=== PATIENT | male | born 1955 | race Caucasian/White ===

== ENCOUNTER 2017-04-29 13:45 | Emergency (ER) | payer MEDICARE ==
[2017-04-29] MEDS ORDERED: Ondansetron HCl/PF 4 MG/2 ML Vial ONE (13:52)
[2017-04-29 14:53] LABS: Hematocrit 35.9 % (42.0-52.0); Mean Platelet Volume 7.3 fL (7.4-10.4); Red Blood Cell (RBC) Count 3.53 mill/uL (4.70-6.10); White Blood Cell (WBC) Count 26.2 thou/uL (4.8-10.8)
[2017-04-29] MEDS ORDERED: Metoclopramide HCl 10 MG/2 ML VIAL ONE (14:54)
--- NOTE | 2017-04-29 14:56 | RAD ---
RADIOGRAPH CHEST 1 VIEW: Date: 04-29-17 Time: 1:32 p.m. HISTORY: 61-year-old male with chest pain. Follow up abnormal chest radiograph. COMPARISON: 04-23-17 FINDINGS: The patchy right upper lobe infiltrate and associated right upper lobe small pulmonary mass, has not changed. The rest of the lungs remain clear. Cardiomediastinal silhouette is normal. Lateral costop hrenic angles are sharp. There is no evidence of pneumothorax or pneumoperitoneum. IMPRESSION: 1. No interval change since 04-23-17. 2. Right upper lobe infiltrate and mass. CALLI POS: SUSHIL
[2017-04-29 15:11] LABS: ALT (SGPT) 495 U/L (8-55); AST (SGOT) 612 U/L (5-34); Alkaline Phosphatase 264 U/L (40-150); Anion Gap 30 mmol/L (10-20); BUN (Urea Nitrogen) 58 mg/dL (8.4-25.7); Bilirubin, Total 3.2 mg/dL (0.2-1.2); Calc. Creatinine Clearance 0 mL/min (70-130); Calcium 8.3 mg/dL (7.8-10.44); Carbon Dioxide 10 mmol/L (22-29); Chloride 92 mmol/L (98-107); Estimated GFR-MDRD 15; Globulin 3.4 g/dL (2.4-3.5)
[2017-04-29 15:16] LABS: Band 5 % (5-11); Neutrophil 90 % (42-75); Troponin I 0.101 ng/mL (< 0.028)
[2017-04-29 15:24] LABS: Lipase 3758 U/L (8-78)
[2017-04-29 15:37] LABS: Lactic Acid - Sepsis 12.5 mmol/L (0.5-2.2)
--- NOTE | 2017-04-29 15:41 | CT ---
CT ABDOMEN AND PELVIS WITH IV CONTRAST: Date: 04-29-17 History: Abdominal pain. Hypotensive. Abdominal distention with tumors in abdomen and back. Comparison: Noncontrast CT abdomen and pelvis, 04-22-17. FINDINGS: Lung bases are clear. Multiple hypodense masses are again seen throughout each lobe of the liver with largest seen in the right hepatic lobe measuring 4.4 cm. There is mild peripancreatic inflammatory stranding with stranding extending into the mesentery with minimal amount of fluid in each pericolic gutter. Findings may be attributable to pancreatitis and correlation with pancreatic enzymes is suggested. No pancreatic or peripancreatic fluid collection i s identified. The pancreas otherwise appears to enhance normally. The spleen, bilateral adrenal glands, and kidneys demonstrate a normal CT appearance. Vascular calcifications are seen in the abdominal aorta and involving the iliac arteries. There is s ignificant streak artifact in the pelvis due to bilateral total hip prosthesis. Limited evaluation o f the urinary bladder and lower pelvic structures. 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 IMPRESSION: 1. Peripancreatic inflammatory stranding suggesting pancreatitis. 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 2. Multiple hypodense hepatic masses most worrisome for metastatic disease. There is hepatomegaly wi th the liver measuring 22 cm in craniocaudal dimensions. 3. Above findings discussed with the ordering physician in the Emergency Department. Code CR. POS: JESICA
[2017-04-29] MEDS ORDERED: Morphine 2 MG/ML SYRINGE ONE ×2 (15:50→16:24)
[2017-04-29] MEDS ORDERED: ISOVUE-370 76%-LOCM 1 ML ONE (16:10)
[2017-04-29] MEDS ORDERED: Piperacillin/Tazobactam 3.375 GM VIAL ONE (16:21)
[2017-04-29 16:26] LABS: Bilirubin Small (Negative); Blood, Urine Small (Negative); Glucose, Urine (Dipstick) Negative (Negative); Ketone, Urine Trace mg/dL (Negative); Nitrite Negative (Negative); Protein, Urine (Dipstick) Negative (Neg-Trace); Urobilinogen 0.2 mg/dL (0.2-1.0)
[2017-04-29 16:28] LABS: Bacteria/HPF None Seen HPF (None Seen); Hyaline Casts/LPF 7-10 HYALINE CAST LPF (0-3 Hyaline); Squamous Epithelial 0-3 HPF (0-3); WBC/HPF 0-3 HPF (0-3)
--- NOTE | 2017-04-29 16:39 | ULT ---
ULTRASOUND ABDOMEN LIMITED: (RIGHT UPPER QUADRANT) 04/29/17 HISTORY: 61-year-old male with right upper quadrant abdominal pain, jaundice, and acute pancreatitis. FINDINGS: Gallbladder: Contracted, and therefore difficult to evaluate. No obvious gallstone identified. The w all appears borderline thickened, but that could be explained by the contraction. Common duct: 6 mm. Liver: Enlarged. A very large number of small, mildly hypodense solid nodules throughout the entire left and right lobes. Pancreas: Nonspecific sonographic appearance. See separate report of the CT regarding the signs of a cute pancreatitis. Right kidney: No hydronephrosis. IMPRESSION: 1. Highly suspicious for a large number of hepatic metastatic lesions. 2. Hepatomegaly. 3. Contracted gallbladder. CALLI Esparza POS: SUSHIL
[2017-04-29] MEDS ORDERED: Heparin 25,000 units/D5W 500 ML ONE (17:57)
[2017-04-29] MEDS ORDERED: Heparin 10,000 UNITS/ 10 ML VIAL SLOW IVP SCH (18:00)
[2017-04-29] MEDS ORDERED: Heparin 25,000 units/D5W 500 ML IV SCH (18:00)
--- NOTE | 2017-04-29 18:25 | CT ---
CT CHEST WITHOUT CONTRAST: Date: 04/29/17 HISTORY: Pneumonia. FINDINGS: Absence of IV contrast reduces the sensitivity of exam, particularly for evaluation of mediastinal, hilar, and vascular structures. There are vascular calcifications without evidence of aneurysmal dilatation of the thoracic aorta. N o pleural or pericardial effusions are seen. There is mediastinal lymphadenopathy with the largest l ymph node measuring about 19.0 mm. There are mass-like areas of consolidation in the right upper lob e measuring 3.5 and 4.3 cm, respectively. Please see CT abdomen and pelvis report from earlier today for upper abdominal findings. There are degenerative changes in the spine. No osteolytic or osteoblastic lesions are seen. IMPRESSION: Focal areas of mass-like consolidation in the right upper lobe with mediastinal lymphadenopathy. Mal ignancy/metastatic disease versus pneumonia. POS: [facility]
[2017-04-29] MEDS ORDERED: Promethazine HCl 25 MG/ML VIAL ONE (20:13)
[2017-04-29] MEDS ORDERED: Piperacillin/Tazobactam 3.375 GM in Sodium Chloride 0.9% 100 ML IVPB SCH (23:59)
== END 2017-04-29 20:34 | disposition hospice, inpatient (51) ==
LOC: ERS 13:45
DX: N17.9 Acute kidney failure, unspecified (principal); C79.9 Secondary malignant neoplasm of unspecified site; R74.0 Nonspecific elevation of levels of transaminase and lactic acid dehydrogenase [LDH]; K85.90 Acute pancreatitis without necrosis or infection, unspecified; I81 Portal vein thrombosis; I10 Essential (primary) hypertension; F17.210 Nicotine dependence, cigarettes, uncomplicated; Z79.899 Other long term (current) drug therapy
CPT/HCPCS: 36415; 36416; 71010; 71250; 74177; 76705; 80053; 81003; 81015; 82553; 83605; 83690; 84484; 85025; 87040; 87086; 93005; 96361; 96365; 96366; 96367; 96368; 96375; 96376; J1644; J2270; J2405; J2543; J2550; J2765